=== PATIENT | male | born 1995 | race Caucasian/White ===

== ENCOUNTER 2024-08-19 21:21 | Emergency (ER) | payer SELFPAY ==
[~2024-08-19] VITALS: Ht 165.1 cm; Wt 90.3 kg
[2024-08-19 21:24] VITALS: O2SAT 98
[2024-08-19 22:22] VITALS: BP 149/92; PULSE 88; RESP 16; TEMP 98.9; O2SAT 100
[2024-08-20] MEDS ORDERED: IBUP-2029 MT (00:36)
[2024-08-20] MEDS ORDERED: AMOX1TAB16 MT (00:36)
[2024-08-20] MEDS: IBUPROFEN 600MG TABLET PO ONE (00:57)
[2024-08-20] MEDS: TETANUS, DIPHTHERIA, PERTUSSIS VAC/PF 0.5ML (>10YR OLD) IM ONE (00:59)
== END 2024-08-20 01:02 | disposition home or self-care (01) ==
LOC: ER 21:21
DX: S80.02XA Contusion of left knee, initial encounter (principal); S60.512A Abrasion of left hand, initial encounter; S60.511A Abrasion of right hand, initial encounter; W54.0XXA Bitten by dog, initial encounter; Y93.89 Activity, other specified; Y92.89 Other specified places as the place of occurrence of the external cause; Y99.8 Other external cause status
CPT/HCPCS: 73562; 90471; 90715; 99283

== ENCOUNTER 2024-08-30 12:20 | Emergency (ER) | payer SELFPAY ==
[~2024-08-30] VITALS: Ht 165.1 cm; Wt 87.0 kg
[~2024-08-30 12:20] MED LIST: AMOX1TAB16 MT; IBUP-2029 MT
[2024-08-30 12:27] VITALS: BP 148/65; RESP 18; TEMP 97.4; O2SAT 99
[2024-08-30 12:30] VITALS: PULSE 83; O2SAT 99
== END 2024-08-30 13:05 | disposition home or self-care (01) ==
LOC: ER 12:20
DX: S60.511D Abrasion of right hand, subsequent encounter (principal); W54.0XXD Bitten by dog, subsequent encounter; Z48.00 Encounter for change or removal of nonsurgical wound dressing
CPT/HCPCS: 99281